=== PATIENT | male | born 1970 | race Native Hawaiian/Other Pacific Islander ===

== ENCOUNTER 2017-11-13 12:16 | Emergency (ER) | payer OTHER ==
[~2017-11-13] VITALS: Ht 175.3 cm; Wt 79.8 kg
[2017-11-13 12:19] VITALS: TEMP 97.8
[2017-11-13] MEDS ORDERED: HYDROXYZ PAM100 MG PO (12:31)
[2017-11-13] MEDS ORDERED: DULO60CA2 PO (12:31)
[2017-11-13 13:05] VITALS: BP 118/82
[2017-11-13 13:32] LABS: PLATELET COUNT 324 K/uL (142-355)
[2017-11-13 13:51] LABS: POTASSIUM 4.2 mmol/L (3.6-5.2)
== END 2017-11-13 16:50 | disposition home or self-care (01) ==
LOC: ED 12:16
PROVIDERS: Emergency Medicine
DX: K29.70 Gastritis, unspecified, without bleeding (principal); K27.9 Peptic ulcer, site unspecified, unspecified as acute or chronic, without hemorrhage or perforation; B96.81 Helicobacter pylori [H. pylori] as the cause of diseases classified elsewhere
CPT/HCPCS: 36415; 80053; 81000; 82150; 83690; 83735; 85027; 86318; 99283

== ENCOUNTER 2017-11-27 14:22 | Inpatient (IN) | payer OTHER ==
[~2017-11-27] VITALS: Ht 175.3 cm; Wt 82.6 kg
[~2017-11-27 14:22] MED LIST: DULO60CA2 PO; HYDROXYZ PAM100 MG PO
[2017-11-27 14:35] VITALS: BP 121/90; TEMP 98.4
[2017-11-27 17:09] LABS: PLATELET COUNT 353 K/uL (142-355)
[2017-11-27 17:28] LABS: POTASSIUM 4.2 mmol/L (3.6-5.2)
[2017-11-27 17:37] LABS: PARTIAL THROMBOPLASTIN TIME 26.9 SECONDS (24.5-33.6)
--- NOTE | 2017-11-27 21:10 | NUR ---
PATIENT RECEIVED FROM ER VIA WC. ALERT AND ORIENTED X 3. EDUCATION GIVEN REGARDING CALL LIGHT AND BED CONTROLS. INSTRUCTED TO KEEP BED IN LOW POSITION. PATIENT VERBALIZED UNDERSTANDING. 18G INTACT TO LFA WITH BANANA BAG INFSUING. SITE WITHOUT REDDNESS OR SWELLING. REFER TO ADMISSION ASSESSMENT FOR FURTHER DETAILS.
[2017-11-27 21:39] VITALS: BP 136/100; TEMP 97.8; Ht 175.3 cm; Wt 82.6 kg
[2017-11-28 00:27] VITALS: BP 124/78; TEMP 97.7
[2017-11-28 04:00] VITALS: BP 89/53; TEMP 98
[2017-11-28 08:00] VITALS: BP 121/84; TEMP 97.9
[2017-11-28 08:36] LABS: PLATELET COUNT 274 K/uL (142-355)
[2017-11-28 08:51] LABS: POTASSIUM 3.6 mmol/L (3.6-5.2)
--- NOTE | 2017-11-28 11:18 | NUR ---
DR. MCCALL AT BEDSIDE TO DISCUSS POC.
[2017-11-28 11:25] VITALS: BP 122/83; TEMP 97.8
[2017-11-28 16:00] VITALS: BP 145/93; TEMP 97.7
[2017-11-28 19:51] VITALS: BP 131/85; TEMP 98
[2017-11-29 00:28] VITALS: BP 106/60; TEMP 97.9
[2017-11-29 04:00] VITALS: BP 107/70; TEMP 97.5
[2017-11-29 05:08] LABS: PLATELET COUNT 253 K/uL (142-355)
[2017-11-29 05:12] LABS: POTASSIUM 3.6 mmol/L (3.6-5.2)
[2017-11-29 08:00] VITALS: BP 118/70; TEMP 97.6
[2017-11-29 12:00] VITALS: BP 134/90; TEMP 97.8
--- NOTE | 2017-11-29 12:21 | NUR ---
DR GARZA IN TO CONSULT WITH PT REGUARDING SCOPE. NAD NTOED.
[2017-11-29 16:00] VITALS: BP 115/73; TEMP 97.7
[2017-11-29 19:57] VITALS: BP 135/89; TEMP 97.9
[2017-11-30] VITALS (12 sets, daily range): BP systolic 92–136; BP diastolic 55–89; TEMP 97.7–99.2
[2017-11-30 05:05] LABS: PLATELET COUNT 238 K/uL (142-355)
[2017-11-30 05:23] LABS: POTASSIUM 3.7 mmol/L (3.6-5.2)
--- NOTE | 2017-11-30 08:25 | NUR ---
PT TO OR VIA BED IN STABLE COND.
--- NOTE | 2017-11-30 09:24 | NUR ---
PT BACK FROM OR VIA BED IN STABLE COND. RECEIVED REPORT FROM EDGAR YOON RN.
--- NOTE | 2017-11-30 09:38 | NUR ---
PT HAS NEW IV TO R FA 20G STARTED BY OR.
[2017-12-01 04:00] VITALS: BP 110/67; TEMP 97.9
[2017-12-01 05:43] LABS: PLATELET COUNT 246 K/uL (142-355)
[2017-12-01 05:51] LABS: POTASSIUM 3.7 mmol/L (3.6-5.2)
[2017-12-01 07:57] VITALS: BP 116/76; TEMP 97.9
--- NOTE | 2017-12-01 09:30 | NUR ---
PT STATED HE HAD LARGE BM WITH NO S/S OF BLOOD IN STOOL. DR. GARZA NOTIFIED. DR. GARZA WROTE PRESCRIPTIONS FOR PT TO TAKE HOME WHEN D/C'D BY HOSPITALIST.
[2017-12-01 12:00] VITALS: BP 131/85; TEMP 98
--- NOTE | 2017-12-01 14:16 | NUR ---
IV D/C'D. D/C INSTRUCTIONS GIVEN. PT INSTRUCTED TO MAKE FU WITH PCP IN ONE WEEK. PRESCRIPTIONS FOR CIPRO, FLAYGL AND PROTONIX GIVEN TO PT. PT HAS NO FUTHER QUESTIONS/CONCERNS. PT AMBULATED OUT WITH PCT AT THIS TIME. NO PROBLEMS NOTED.
== END 2017-12-01 13:50 | disposition home or self-care (01) | DRG 379 ==
LOC: ED 14:22 → MED/SURG 18:51
PROVIDERS: Emergency Medicine; ADMIT Specialist
PROC: 0DJD8ZZ Inspection of Lower Intestinal Tract, Via Natural or Artificial Opening Endoscopic (ICD-10-PCS; principal; 2017-11-30)
DX: K57.31 Diverticulosis of large intestine without perforation or abscess with bleeding (principal); I10 Essential (primary) hypertension
CPT/HCPCS: 36415; 74022; 80048; 80053; 80307; 81000; 82150; 82272; 83605; 83735; 84100; 85027; 85610; 85730; 86850; 86900; 86901; 94640; 94664; 94760; 96360; 96366; 96374; 96375; 99284; J2001; J2250; J2270; J2354; J2405; J2704; J3411; J3475; J3490; Q0177

== ENCOUNTER 2017-12-24 11:48 | Emergency (ER) | payer OTHER ==
[~2017-12-24] VITALS: Ht 175.3 cm; Wt 72.6 kg
[2017-12-24 13:16] LABS: PLATELET COUNT 326 K/uL (142-355)
[2017-12-24 13:26] LABS: POTASSIUM 4.5 mmol/L (3.6-5.2)
[2017-12-24 17:30] VITALS: BP 120/74; TEMP 97.8
== END 2017-12-24 17:42 | disposition home or self-care (01) ==
LOC: ED 11:48
PROVIDERS: Emergency Medicine
DX: R10.9 Unspecified abdominal pain (principal)
CPT/HCPCS: 36415; 80053; 81000; 82150; 83690; 85027; 86318; 96365; 96372; 96375; 99284; J0500; J2405; J2550; Q9963

== ENCOUNTER 2018-03-28 17:44 | Outpatient (CLI) | payer OTHER | END 2018-03-28 18:04 | disposition short-term general hospital (02) | LOC: AMB 17:44 | DX: T50.901A Poisoning by unspecified drugs, medicaments and biological substances, accidental (unintentional), initial encounter (principal); Y92.89 Other specified places as the place of occurrence of the external cause | CPT/HCPCS: A0425; A0427 ==

== ENCOUNTER 2018-03-28 18:04 | Inpatient (IN) | payer OTHER ==
[~2018-03-28] VITALS: Ht 175.3 cm; Wt 75.4 kg
[2018-03-28] VITALS (7 sets, daily range): BP systolic 90–154; BP diastolic 62–95; TEMP 98.3
[2018-03-28 18:44] LABS: PLATELET COUNT 295 K/uL (142-355)
[2018-03-28 18:54] LABS: POTASSIUM 3.5 mmol/L (3.6-5.2)
[2018-03-29] VITALS (24 sets, daily range): BP systolic 82–139; BP diastolic 45–95; TEMP 97.7–98.3; Ht 175.3 cm; Wt 75.4 kg
[2018-03-29 09:25] LABS: PLATELET COUNT 212 K/uL (142-355)
[2018-03-29 09:44] LABS: POTASSIUM 4.3 mmol/L (3.6-5.2)
[2018-03-30] VITALS (26 sets, daily range): BP systolic 83–138; BP diastolic 52–96; TEMP 97.7–98.7
[2018-03-30 06:01] LABS: PLATELET COUNT 155 K/uL (142-355)
[2018-03-30 06:05] LABS: POTASSIUM 3.5 mmol/L (3.6-5.2)
[2018-03-31] VITALS (24 sets, daily range): BP systolic 104–155; BP diastolic 62–99; TEMP 97.5–98.5
[2018-03-31 04:57] LABS: PLATELET COUNT 209 K/uL (142-355)
[2018-03-31 05:11] LABS: POTASSIUM 3.7 mmol/L (3.6-5.2)
[2018-04-01] VITALS (16 sets, daily range): BP systolic 108–147; BP diastolic 60–91; TEMP 97.7–98.4
[2018-04-01 06:32] LABS: PLATELET COUNT 231 K/uL (142-355)
[2018-04-01 07:10] LABS: POTASSIUM 3.1 mmol/L (3.6-5.2)
[2018-04-02] VITALS: BP 138/85; TEMP 98.7
[2018-04-02 05:47] LABS: PLATELET COUNT 259 K/uL (142-355)
[2018-04-02 06:02] LABS: POTASSIUM 2.9 mmol/L (3.6-5.2)
[2018-04-02 08:00] VITALS: BP 123/81; TEMP 99
[2018-04-02 12:00] VITALS: BP 140/95; TEMP 98.2
[2018-04-02 15:57] VITALS: BP 143/90; TEMP 98.6
[2018-04-02 20:00] VITALS: BP 148/94; TEMP 98.7
[2018-04-03] VITALS (7 sets, daily range): BP systolic 42–144; BP diastolic 73–93; TEMP 98.1–99.2
[2018-04-03 06:10] LABS: PLATELET COUNT 290 K/uL (142-355)
[2018-04-03 06:27] LABS: POTASSIUM 3.8 mmol/L (3.6-5.2)
[2018-04-04 00:02] VITALS: BP 139/88; TEMP 98.9
[2018-04-04 04:00] VITALS: BP 122/82; TEMP 98.6
[2018-04-04 05:55] LABS: PLATELET COUNT 313 K/uL (142-355)
[2018-04-04 06:12] LABS: POTASSIUM 3.8 mmol/L (3.6-5.2)
[2018-04-04 08:00] VITALS: BP 127/80; TEMP 98
[2018-04-04 17:00] VITALS: BP 136/90; TEMP 98
[2018-04-04 20:00] VITALS: BP 145/96; TEMP 98.2
[2018-04-05 00:02] VITALS: BP 134/95; TEMP 97.9
[2018-04-05 04:00] VITALS: BP 113/78; TEMP 98.4
[2018-04-05 07:00] VITALS: TEMP 97.5
[2018-04-05 07:06] LABS: PLATELET COUNT 330 K/uL (142-355)
[2018-04-05 08:00] VITALS: TEMP 97.5
[2018-04-05 08:42] LABS: POTASSIUM 3.7 mmol/L (3.6-5.2)
[2018-04-05 09:00] VITALS: BP 132/93; TEMP 97.5
[2018-04-05 13:00] VITALS: BP 130/87; TEMP 98
== END 2018-04-05 16:25 | disposition home or self-care (01) | DRG 917 ==
LOC: ED 18:04 → ICU 19:30
DX: T50.901A Poisoning by unspecified drugs, medicaments and biological substances, accidental (unintentional), initial encounter (principal); G93.40 Encephalopathy, unspecified; M62.82 Rhabdomyolysis; F19.10 Other psychoactive substance abuse, uncomplicated; Y92.89 Other specified places as the place of occurrence of the external cause; R41.82 Altered mental status, unspecified; S80.812A Abrasion, left lower leg, initial encounter; S80.811A Abrasion, right lower leg, initial encounter; S40.812A Abrasion of left upper arm, initial encounter; S40.811A Abrasion of right upper arm, initial encounter; F17.210 Nicotine dependence, cigarettes, uncomplicated; Z79.01 Long term (current) use of anticoagulants
CPT/HCPCS: 36415; 80053; 80307; 80329; 81000; 82550; 82553; 82962; 83735; 84484; 85027; 87088; 93005; 96365; 96372; 96376; 99285; J0696; J1630; J1650; J1885; J2060; J2405; J2550; J3411; J3480; J3486; J3490; J7120; Q0177

== ENCOUNTER 2018-11-26 12:28 | Emergency (ER) | payer OTHER ==
[~2018-11-26] VITALS: Ht 175.3 cm; Wt 75.3 kg
[2018-11-26 12:36] VITALS: TEMP 98
[2018-11-26 13:34] LABS: PLATELET COUNT 300 K/uL (142-355)
[2018-11-26 13:52] LABS: POTASSIUM 3.9 mmol/L (3.6-5.2); SODIUM 141 mmol/L (136-145)
[2018-11-26 18:31] VITALS: BP 168/72
== END 2018-11-26 18:31 | disposition home or self-care (01) ==
LOC: ED 12:28
PROVIDERS: Emergency Medicine
DX: A08.4 Viral intestinal infection, unspecified (principal)
CPT/HCPCS: 36415; 80053; 81000; 82150; 82550; 83690; 84484; 85027; 93005; 96360; 96374; 96375; 99284; J1885; J2270; J2405

== ENCOUNTER 2023-03-13 16:01 | Observation (INO) | payer OTHER ==
[~2023-03-13] VITALS: Ht 175.3 cm; Wt 78.6 kg
[2023-03-13 16:05] VITALS: BP 153/98; TEMP 97.6
[2023-03-13 16:25] LABS: PLATELET COUNT 301 K/uL (142-355)
[2023-03-13 16:35] LABS: POTASSIUM 4.4 mmol/L (3.6-5.2)
[2023-03-14] VITALS: BP 104/59; TEMP 98.7
[2023-03-14 01:23] VITALS: BP 107/64; TEMP 97.8; Ht 175.3 cm; Wt 78.6 kg
[2023-03-14 04:00] VITALS: BP 108/62; TEMP 98.8
[2023-03-14 07:26] LABS: PLATELET COUNT 239 K/uL (142-355)
[2023-03-14 08:05] VITALS: BP 105/74; TEMP 97.8
[2023-03-14 12:04] VITALS: BP 111/57; TEMP 97.6
== END 2023-03-14 15:26 | disposition home or self-care (01) ==
LOC: ED 16:01 → MED/SURG 18:23
PROVIDERS: ADMIT Family Medicine; ATTEND Internal Medicine
DX: N20.0 Calculus of kidney (principal); K21.9 Gastro-esophageal reflux disease without esophagitis; R74.01 Elevation of levels of liver transaminase levels; F19.10 Other psychoactive substance abuse, uncomplicated; R10.9 Unspecified abdominal pain
CPT/HCPCS: 36415; 80053; 80074; 80143; 80307; 81002; 85027; 96360; 96361; 96374; 96375; 99221; 99284; G0378; J1885; J2175; J2270; J2405; J3490